=== PATIENT | female | born 1940 | race Caucasian/White ===

== ENCOUNTER 2017-04-15 10:42 | Outpatient (CLI) | payer OTHER ==
[~2017-04-15 10:42] MED LIST: ALEVE220 MG PO; FOSAMAX70 MG PO
--- NOTE | 2017-04-15 12:44 | DIAGNOSTIC IMAGING REPORT ---
PROCEDURE: US LTD BREAST ULTRASOUND - RT INDICATION: 6 MONTH FOLLOW UP TO CONFIRM STABILITY TECHNIQUE: Phillips scale and color Doppler sonographic images of the right breast were acquired. COMPARISON: 10/16/2016, 09/10/2016, 06/13/2015, 10/13/2013, 01/14/2012 FINDINGS: Immediately adjacent to the nipple a mildly heterogeneous nodular solid structure with through transmission measures 4.5 x 2.8 by 3.4 mm. No internal vascular flow on the current study. There is trace peripheral vascularity. It measures and appears slightly smaller compared to the prior study. Mammograms demonstrate it to be present for multiple years. Further lateral in the anterior right breast adjacent to the nipple is of stable solid nodule with a small amount of through transmission, no posterior shadowing or internal vascularity which measures 4.3 x 3.9 x 2.5 cm, stable compared to the prior study. Partially imaged was stable ductal ectasia. IMPRESSION: 1. There are two stable nodules in the right breast. The one immediately adjacent to the nipple is likely an impacted Dominguez gland or sebaceous cyst. Slight decrease in size compared to the prior study. The one a slightly more lateral in the right breast is nonspecific, unchanged in size, and either a lymph node or a tiny fibroadenoma. 2. The patient can resume yearly screening mammography in 6 months. Findings and recommendations were discussed with the patient. RESULT CODE: 2- Benign findings. A. A negative report should not delay biopsy if a dominant or clinically suspicious mass is present. 10-15% of cancers are not identified by x-ray. B. A negative report may reinforce clinical impression. C. Adenosis and dense breasts may obscure an underlying neoplasm. D. False positive reports average 6-10%. E.. A yearly screening mammogram is recommended. A reminder letter will be scheduled.
== END 2017-04-16 15:49 | disposition home or self-care (01) ==
LOC: US SRH 10:42
DX: N63 Unspecified lump in breast (principal)